=== PATIENT | male | born 1985 | race Hispanic/Latino ===

== ENCOUNTER 2025-02-01 07:09 | Emergency (ER) | payer BC ==
[~2025-02-01] VITALS: Ht 172.7 cm; Wt 86.6 kg
--- NOTE | 2025-02-01 07:18 | NUR ---
POLICE REPORT [id number]
[2025-02-01] MEDS: teTANUS/diphthERIA TOXOID [ADULT] 0.5 ML VIAL IM ONE (07:32)
[2025-02-01] MEDS: cefTRIAXone 1G VIAL IM ONE (07:33)
[2025-02-01] MEDS: LIDOCAINE HCL 1% 20 ML VIAL ONE (07:43)
--- NOTE | 2025-02-01 08:31 | HMCIMG ---
FEMUR 2VW RIGHT HISTORY: Dog bite COMPARISON: None TECHNIQUE: 4 images of right femur were obtained. FINDINGS: There is no acute displaced fracture or dislocation. No evidence of radiopaque foreign body is seen. Degenerative changes are seen. IMPRESSION: 1. Findings as described above.
[2025-02-01] MEDS ORDERED: CEPH500B PO (08:43)
--- NOTE | 2025-02-01 08:43 | ERN ---
General Chief Complaint: Animal Bite Stated Complaint: DOG BITE Time Seen by MD: 07:12 Source: patient History of Present Illness Initial Comments Patient is a 39-year-old male coming in to be evaluated for right leg pain. Patient states that yesterday he was bit by a dog he had an incident report fixed up by animal control. Patient also states he was seen at an urgent care b ut nothing was done. Allergies: Coded Allergies: No Known Drug Allergies (Unverified Allergy, Unknown, 02/01/25) Past Medical History Past Medical History: Hypertension Past Surgical History: None ROS Dictation CONSTITUTIONAL: No chills, no fever, no weakness, no diaphoresis, no malaise. HEAD/FACE: No signs of trauma. EENT: No eye pain, no blurred vision, no tearing, no double vision, no ear pain, no ear discharge, no nose pain, no nasal congestion, no throat pain, no throat swelling, no mouth pain. RESPIRATORY: No cough, no orthopnea, no SOB, no stridor, no wheezing. CARDIOVASCULAR: No chest pain, no edema, no palpitations, no syncope. GASTROINTESTINAL/ABDOMINAL: No abdominal pain, no constipation, no diarrhea, no nausea, no vomiting. GENITOURINARY: No abnormal discharge, no dysuria, no frequent urination, no hematuria. No complaints of pain in the genitals. MUSCULOSKELETAL: No back pain, no gout, no joint pain, no joint swelling, no muscle pain, no muscle stiffness, no neck pain. INTEGUMENTARY: No change in color, no change in hair/nails, no dryness, lesion, no lumps, no rash. NEUROLOGICAL/PSYCH: No anxiety, not depressed, no emotional problem, no headache, no numbness, no pre-existing deficit, no history of seizures, no tremors, no weakness. HEMATOLOGIC/LYMPHATIC: Not anemic, no history of blood clots, no apparent bleeding, no bruising, glands not swollen. All Systems Negative, Except as Noted. Physical Exam Physical Exam Dictation VITAL SIGNS: Reviewed. GENERAL APPEARANCE: Alert, oriented x3, no acute distress, obese. HEAD AND FACE: Non-traumatic. EYES: PERRL, pink conjunctivas, eyelid no trauma, anterior chamber clear. EARS: Pinnas intact and no signs of trauma or erythema. Ear canals clear and no discharge. TMs no erythema. NOSE: No discharge, no bleeding. OROPHARYNX: Mouth normal, teeth no caries, tongue pink. Pharynx clear, no eryt davide. Tonsils no exudates, no abscesses noted. Mucous membrane moist. NECK: Supple, non-tender, no thyromegaly, no masses, no JVD, no bruits. BREAST: Deferred. CHEST: No tenderness, no crepitus, no paradoxical movement, no retractions. LUNGS: Clear, well-ventilated, symmetric, no rales, no wheezing, no rhonchi, no stridor, good breath sounds bilaterally. HEART: Regular rate, regular rhythm, no murmur, no gallops. VASCULAR: No peripheral edema. ABDOMEN: Soft, positive bowel sounds, nondistended, no guarding, nontender, no rebound, no masses no hepatomegaly, no splenomegaly, no Covington's sign, no hernias. RECTAL: Deferred. GENITAL: Deferred. NEUROLOGICAL: Normal speech, gross motor function intact, gross sensory function intact. MUSCULOSKELETAL: Neck nontender, full range of motion, back nontender, full range of motion. EXTREMITIES: Nontender, full range of motion. SKIN: Color pink, dry, no turgor, no rash, puncture lacerations right proximal femur, no abrasions, no contusions. LYMPHATICS: Deferred. Results Laboratory and Microbiology Labs Reviewed?: Yes EKG/XRAY/US/CT/MRI X-RAY Comment Right femur-no foreign body [id number] [id number] IMAGING REPORT Signed PATIENT: CONNIE BAJWA MR#: [id number] : 1985 SEX: M AGE: 39 LOCATION: [facility] ORDER 2 STATUS: REG ER REPORT#: [id number] SERVICE 1 REASON: dog bite ORDERING PHYSICIAN: MAHOGANY RIBERA MD PROCEDURE: FEM RT 2 - FEMUR 2VW RIGHT FEMUR 2VW RIGHT HISTORY: Dog bite COMPARISON: None TECHNIQUE: 4 images of right femur were obtained. FINDINGS: There is no acute displaced fracture or dislocation. No evidence of radiopaque foreign body is seen. Degenerative changes are seen. IMPRESSION: 1. Findings as described above. DICTATED BY: VALENTÍN BANUELOS MD DATE: 02/01/25826 ELECTRONICALLY SIGNED BY: VALENTÍN BANUELOS MD DATE: 02/01/25830 [facility] MDM: Differential diagnosis: Dog bite, abrasion, puncture wound, Rationale: Tests considered and ordered secondary to shared decision making include: Previous outside records reviewed: Old ER visits. Risk of complication and/or morbidity or mortality of patient management: None Medications-Per medication reconciliation Patient is a 39-year-old male coming in to be evaluated for right proximal femur dog bite. Per patient a dog bit him yesterday he did get an animal control number. Wound was cleaned thoroughly irrigated patient received antibiotics as well as a tetanus vaccine. Patient will be discharged in stable condition. ED Course Orders Procedure Category Date Status Time Femur 2vw Right RAD 02/01/25 Resulted 07:22 Tetanus,Diphtheria PHA 02/01/25 Complete Tox [Adult] (Diphther 07:30 Ceftriaxone 1g Vial PHA 02/01/25 Complete (Rocephine 1g Inj) 07:30 Lidocaine Hcl 1% 20ml PHA 02/01/25 Complete Vial (Lidocaine Hc 07:29 Lidocaine Hcl 1% 20ml PHA 02/01/25 Complete Vial (Lidocaine Hc 08:30 Current Medications Medications (Trade) Dose Ordered Sig/Sara Route PRN Reason Start Time Stop Time Status Last Admin Dose Admin Ceftriaxone Sodium (ROCEphine 1G INJ) 1 gm ONCE ONCE IM 02/01/25 07:30 02/01/25 07:31 DC 02/01/25 07:33 Lidocaine HCl (Lidocaine HCl 1% 20ml Vial) 20 ml ONCE ONCE INJ 02/01/25 08:30 02/01/25 08:31 DC Lidocaine HCl (Lidocaine HCl 1% 20ml Vial) 20 ml STK-MED ONCE .ROUTE 02/01/25 07:29 02/01/25 07:34 DC Tetanus/ Diphtheria Toxoids Adsorbed (DiphthERIA-teTANUS TOXOID [ADULT]/ DECAVAC) 0.5 ml ONCE ONCE IM 02/01/25 07:30 02/01/25 07:31 DC 02/01/25 07:32 Vital Signs Date Time Temp Pulse Resp B/P (MAP) Pulse Ox O2 Delivery O2 Flow Rate FiO2 02/01/25 07:12 97.5 102 18 121/96 97 Room Air DX & DISP Disposition: Discharge Departure Impression: Primary Impression: Dog bite Condition: Stable Scripts Cephalexin Monohydrate (Keflex) 500 Mg Cap 1 CAP PO TID for 10 Days, #30 CAP 0 Refills Prov: MAHOGANY RIBERA MD 02/01/25 Additional Instructions: FOLLOW-UP WITH PRIMARY CARE PROVIDER IN 1 TO 2 DAYS. TAKE MEDICATIONS DIRECTED HERE IN THE EMERGENCY ROOM. OKAY TO CONTINUE HOME MEDICATIONS UNLESS OTHERWISE DISCUSSED DURING YOUR VISIT IN THE EMERGENCY ROOM TODAY. RETURN TO YOUR NEAREST EMERGENCY ROOM IF SYMPTOMS WORSEN OR IF THERE IS NO IMPROVEMENT. CALL 911 IF YOU NEED IMMEDIATE ASSISTANCE. TAKE TYLENOL [id number] NEEDED AND IF NO CONTRAINDICATIONS ARE PRESENT. INCREASE ORAL HYDRATION. A WO UND CULTURE OR URINE CULTURE WAS ORDERED HERE IN THE EMERGENCY ROOM DEPARTMENT PLEASE FOLLOW-UP WITH PRIMARY CARE PROVIDER AND ADVISE THEM TO GET REPORTS FROM OUR FACILITY. IF YOU HAD ANY SHAUN WRAP/SPLINTS THAT WERE APPLIED HERE, PLEASE DO NOT REMOVE THEM UNTIL YOU SEE YOUR PRIMARY CARE OR SPECIALTY. Referrals: Referrals: SELF,REFERRAL (PCP) FLORENTINO MARTINEZ MD Time of Disposition: 08:42 MAHOGANY RIBERA MD Feb 01, 2025 08:43
[2025-02-01] MEDS: LIDOCAINE HCL 1% 20 ML VIAL INJ ONE (08:55)
[2025-02-01 09:12] VITALS: BP 113/60; PULSE 90; RESP 18; TEMP 97.8; O2SAT 97
== END 2025-02-01 11:31 | disposition home or self-care (01) ==
LOC: EDH 07:09
DX: S81.831A Puncture wound without foreign body, right lower leg, initial encounter (principal); I10 Essential (primary) hypertension; W54.0XXA Bitten by dog, initial encounter; Y93.89 Activity, other specified; Y92.89 Other specified places as the place of occurrence of the external cause; Y99.8 Other external cause status
CPT/HCPCS: 99284; 90714; 73552; 96372; 90471; J0696